=== PATIENT | male | born 1940 | race Caucasian/White ===

== ENCOUNTER 2023-02-05 07:55 | Inpatient (IN) | payer MEDICARE ==
[2023-02-05] MEDS ORDERED: DIPH,PERTUS(ACELL)TETVAC-LF 0.5 ML VIAL IM ONE (08:30)
--- NOTE | 2023-02-05 08:47 | ED ---
General Adult HPI <EttaEleonoraParvez - Last Filed: 02/05/23 10:21> - General Source: patient, RN notes reviewed, old records reviewed Mode of arrival: ambulatory Limitations: no limitations <Bhavik Moise - Last Filed: 02/05/23 10:42> - General Chief complaint: Fall Stated complaint: Fall Time Seen by Provider: 02/05/23 08:00 - History of Present Illness Initial comments: This is an 82-year-old male presents emergency department stating that he was doing some exercises to help with neuropathy when he bent over he tipped over and fell hit the back of his head and cut open. Patient states he did not have any chest pain difficulty breathing shortness of breath or palpitations. Patient told me he was not dizzy or lightheaded however he did tell the nurses she was dizzy when he fell but I am not sure if that was when he was falling to the ground because he denied it to me. Patient denied abdominal pain patient denies nausea vomiting. Patient denies any fever chills or cough per patient denies a headache currently. Patient denies any neck pain currently patient denies numbness weakness. (Bhavik Moise) - Related Data Allergies Allergy/AdvReac Type Severity Reaction Status Date / Time No Known Allergies Allergy Verified 02/05/23 08:03 Review of Systems ROS Other: All systems not noted in ROS Statement are negative. <Parvez Quiles - Last Filed: 02/05/23 10:21> ROS Other: All systems not noted in ROS Statement are negative. <Bhavik Moise - Last Filed: 02/05/23 10:42> ROS Statement: Those systems with pertinent positive or pertinent negative responses have been documented in the HPI. Past Medical History Past Medical History: Hyperlipidemia, Hypertension History of Any Multi-Drug Resistant Organisms: None Reported Additional Past Surgical History / Comment(s): open heart 2012 Past Psychological History: No Psychological Hx Reported Smoking Status: Never smoker Past Alcohol Use History: None Reported Past Drug Use History: None Reported <Bhavik Moise - Last Filed: 02/05/23 10:42> General Exam Limitations: no limitations <Bhavik Moise - Last Filed: 02/05/23 10:42> - General Exam Comments Initial Comments: GENERAL: Patient is well-developed and well-nourished. Patient is nontoxic and well- hydrated and is in mild distress. ENT: Neck is soft and supple. No significant lymphadenopathy is noted. Oropharynx is clear. Moist mucous membranes. Neck has full range of motion without eliciting any pain. EYES: The sclera were anicteric and conjunctiva were pink and moist. Extraocular movements were intact and pupils were equal round and reactive to light. Eyelids were unremarkable. PULMONARY: Unlabored respirations. Good breath sounds bilaterally. No audible rales rhonchi or wheezing was noted. CARDIOVASCULAR: There is a regular rate and rhythm without any murmurs gallops or rubs. ABDOMEN: Soft and nontender with normal bowel sounds. SKIN: Scalp laceration NEUROLOGIC: Patient is alert and oriented x3. Cranial nerves II through XII are grossly intact. Motor and sensory are also intact. Normal speech, volume and content. Symmetrical smile. MUSCULOSKELETAL: Normal extremities with adequate strength and full range of motion. No lower extremity swelling or edema. No calf tenderness. LYMPHATICS: No significant lymphadenopathy is noted PSYCHIATRIC: Normal psychiatric evaluation. (Bhavik Moise) Course Vital Signs 02/05/23 07:56 Temperature 98.0 F Pulse Rate 92 Respiratory 18 Rate Blood Pressure 152/89 O2 Sat by Pulse 96 Oximetry Procedures - Laceration Laceration #1 Indication: laceration Site: scalp Size (cm): 7 Description: irregular Depth: simple, single layer Sedation/Analgesia: none Pre-repair: wound explored, irrigated extensively, deep structures intact Type of Sutures: other (Dermal brady) Number of Sutures: 20 (Brady) Patient Tolerated Procedure: well, no complications <Parvez Quiles - Last Filed: 02/05/23 10:21> Medical Decision Making - Lab Data Result diagrams: 02/05/23 08:47 02/05/23 08:47 <Parvez Quiles - Last Filed: 02/05/23 10:21> - Lab Data Result diagrams: 02/05/23 08:47 02/05/23 08:47 <Bhavik Moise - Last Filed: 02/05/23 10:42> - Medical Decision Making EKG interpreted by myself shows atrial fibrillation with occasional PVC at 82 bpm QRS is 162 QT interval 408 QTC is 476 per patient's EKG shows a right bundle erlin block Was pt. sent in by a medical professional or institution (VITOR Simmons, HEALTH COORDINATOR, urgent care, hospital, or residential...) When possible be specific @ -No Did you speak to anyone other than the patient for history (EMS, parent, family, police, friend...)? What history was obtained from this source @ -No Did you review nursing and triage notes (agree or disagree)? Why? @ -I reviewed and agree with nursing and triage notes Were old charts reviewed (outside hosp., previous admission, EMS record, old EKG, old radiological studies, urgent care reports/EKG's, residential records)? Report findings @ -No old charts were reviewed Differential Diagnosis (chest pain, altered mental status, abdominal pain women, abdominal pain men, vaginal bleeding, weakness, fever, dyspnea, syncope, headache, dizziness, GI bleed, back pain, seizure, CVA, palpatations, mental health, musculoskeletal)? @ -Differential Dizziness: Benign paroxysmal positional Vertigo, Menieres disease, otitis media, acoustic neuroma, vertebrobasilar insufficiency, cerebellar stroke, encephalitis, hypovolemic, arrhythmia, coronary artery syndrome, anemia, this is not meant to be an all-inclusive list EKG interpreted by me (3pts min.). @ -As above X-rays interpreted by me (1pt min.). @ -None CT interpreted by me (1pt min.). @ -Brain CT showed no acute abnormality. CT C-spine shows no acute abnormality U/S interpreted by me (1pt. min.). @ -None done What testing was considered but not performed or refused? (CT, X-rays, U/S, labs)? Why? @ -None What meds were considered but not given or refused? Why? @ -None Did you discuss the management of the patient with other professionals (professionals i.e. VITOR Simmons, HEALTH COORDINATOR, lab, RT, psych nurse, social welfare administrator, rotary drum tanner, teacher, college service officer, rn field case manager)? Give summary @ -Spoke with Dr. Wells she agreed to admit the patient admitted the patient wrote admitting orders Was smoking cessation discussed for >3mins.? @ -No Was critical care preformed (if so, how long)? @ -No Were there social determinants of health that impacted care today? How? (Homelessness, low income, unemployed, alcoholism, drug addiction, transportation, low edu. Level, literacy, decrease access to med. care, long-term, rehab)? @ -No Was there de-escalation of care discussed even if they declined (Discuss DNR or withdrawal of care, Hospice)? DNR status @ -No What co-morbidities impacted this encounter? (DM, HTN, Smoking, COPD, CAD, Cancer, CVA, ARF, Chemo, Hep., AIDS, mental health diagnosis, sleep apnea, morbid obesity)? @ -None Was patient admitted / discharged? Hospital course, mention meds given and route, prescriptions, significant lab abnormalities, going to OR and other pertinent info. @ -Patient had a scalp LAC which was stapled up. Patient's sodium came back low he was given a bolus of normal saline and started on protocol 75 mL an hour. Patient also was given potassium for low potassium. I spoke with Dr. Wells she agreed to admit the patient admitted the patient wrote admitting orders Undiagnosed new problem with uncertain prognosis? @ -No Drug Therapy requiring intensive monitoring for toxicity (Heparin, Nitro, Insulin, Cardizem)? @ -No Were any procedures done? @ -No Diagnosis/symptom? @ -Hyponatremia Acute, or Chronic, or Acute on Chronic? @ -Acute Uncomplicated (without systemic symptoms) or Complicated (systemic symptoms)? @ -Complicated Side effects of treatment? @ -No Exacerbation, Progression, or Severe Exacerbation? @ -No Poses a threat to life or bodily function? How? (Chest pain, USA, VT, pneumonia, PE, COPD, DKA, ARF, appy, cholecystitis, CVA, Diverticulitis, Homicidal, Suic idal, threat to staff... and all critical care pts) @ -This is related to weakness fall and morbidity Diagnosis/symptom? @ -Hypokalemia Acute, or Chronic, or Acute on Chronic? @ -Acute Uncomplicated (without systemic symptoms) or Complicated (systemic symptoms)? @ -Complicated Side effects of treatment? @ -none Exacerbation, Progression, or Severe Exacerbation] @ -no Poses a threat to life or bodily function? @ -Yes this could lead to arrhythmias and potential (Bhavik Moise) - Lab Data Lab Results 02/05/23 02/05/23 Range/Units 08:47 08:47 WBC 10.4 (3.8-10.6) k/uL RBC 4.91 (4.30-5.90) m/uL Hgb 15.6 (13.0-17.5) gm/dL Hct 44.1 (39.0-53.0) % MCV 89.8 (80.0-100.0) fL MCH 31.9 (25.0-35.0) pg MCHC 35.5 (31.0-37.0) g/dL RDW 12.6 (11.5-15.5) % Plt Count 224 (150-450) k/uL MPV 8.1 Neutrophils % 85 % Lymphocytes % 4 % Monocytes % 10 % Eosinophils % 0 % Basophils % 0 % Neutrophils # 8.9 H (1.3-7.7) k/uL Lymphocytes # 0.4 L (1.0-4.8) k/uL Monocytes # 1.0 (0-1.0) k/uL Eosinophils # 0.0 (0-0.7) k/uL Basophils # 0.0 (0-0.2) k/uL Sodium 118 L* (137-145) mmol/L Potassium 2.7 L* (3.5-5.1) mmol/L Chloride 78 L (98-107) mmol/L Carbon Dioxide 29 (22-30) mmol/L Anion Gap 11 mmol/L BUN 37 H (9-20) mg/dL Creatinine 1.23 (0.66-1.25) mg/dL Est GFR (CKD-EPI)AfAm 64 (>60 ml/min/1.73 sqM) Est GFR (CKD-EPI)NonAf 55 (>60 ml/min/1.73 sqM) Glucose 124 H (74-99) mg/dL Calcium 8.2 L (8.4-10.2) mg/dL Total Bilirubin 1.9 H (0.2-1.3) mg/dL AST 64 H (17-59) U/L ALT 32 (4-49) U/L Alkaline Phosphatase 87 (38-126) U/L Total Protein 6.6 (6.3-8.2) g/dL Albumin 3.7 (3.5-5.0) g/dL Disposition <Parvez Quiles - Last Filed: 02/05/23 10:21> Time of Disposition: 10:42 <Bhavik Moise - Last Filed: 02/05/23 10:42> Clinical Impression: Fall, Hyponatremia, Hypokalemia, Scalp laceration Disposition: ADMITTED IP TO THIS HOSP Referrals: [facility],Clinic [Primary Care Provider] - 1-2 days
--- NOTE | 2023-02-05 09:11 | CT ---
EXAMINATION TYPE: CT brain jenn fritz DATE OF EXAM: 02/05/2023 COMPARISON: None HISTORY: Fall CT DLP: 1561.[address] of the brain was performed. The ventricles, basal cisterns and sulci overlying the cerebral convexities demonstrate mild enlargem ent. There is no evidence for intracranial hemorrhage or sulcal effacement. There is decreased attenuatio n about the periventricular white matter and deep white matter of both cerebral hemispheres, compatib le with chronic small vessel ischemia. No mass effects are seen. If symptoms persist consider MRI. Osseous calvarium is intact. IMPRESSION: 1. Age related atrophic and chronic small vessel ischemic change without acute intracranial process seen at this time. CT Cervical Spine: Unenhanced CT of the cervical spine was performed with bone and soft tissue window settings submitted . Coronal and sagittal reconstruction is obtained. There is normal alignment and prevertebral soft tissues. No evidence for acute cervical fracture . Scattered degenerative disc disease and spondylosis. Biapical scarring. IMPRESSION: 1. No evidence for acute fracture or subluxation of the cervical spine.
[2023-02-05 09:30] LABS: Basophils % (A) 0 %; Eosinophils % (A) 0 %; HCT 44.1 % (39.0-53.0); HGB 15.6 gm/dL (13.0-17.5); Lymphocytes # (A) 0.4 k/uL (1.0-4.8); Lymphocytes % (A) 4 %; MCH 31.9 pg (25.0-35.0); MCHC 35.5 g/dL (31.0-37.0); MCV 89.8 fL (80.0-100.0); Mean Platelet Volume 8.1; Monocytes % (A) 10 %; Neutrophils # (A) 8.9 k/uL (1.3-7.7); Neutrophils % (A) 85 %; Platelet Count 224 k/uL (150-450); RBC 4.91 m/uL (4.30-5.90); RDW 12.6 % (11.5-15.5); WBC 10.4 k/uL (3.8-10.6)
[2023-02-05 09:32] LABS: Albumin 3.7 g/dL (3.5-5.0); Calcium 8.2 mg/dL (8.4-10.2); Total Bilirubin 1.9 mg/dL (0.2-1.3); Total Protein 6.6 g/dL (6.3-8.2)
[2023-02-05 09:33] LABS: Potassium 2.7 mmol/L (3.5-5.1)
[2023-02-05] MEDS ORDERED: POTASSIUM CHLORIDE ER 20 MEQ TAB.ER PO STA ×2 (10:15→18:16)
[2023-02-05] MEDS ORDERED: POTASSIUM CHLORIDE 20 MEQ in WATER FOR INJECTION 1 100ML.BAG IVPB STA (10:15)
[2023-02-05] MEDS ORDERED: SODIUM CHLORIDE 0.9% 500 ML 500 ML IV ONE (10:15)
[2023-02-05] MEDS ORDERED: SODIUM CHLORIDE 0.9% 1,000 ML IV SCH (10:15)
--- NOTE | 2023-02-05 17:04 | P.HPIM ---
History of Present Illness H&P Date: 02/05/23 Chief Complaint: dizziness, fall 82 year old man with a history of hypertension, hyperlipidemia, paroxysmal atrial fibrillation presented for dizziness, fall. Patient says that he had been feeling dizzy since the medication changes are made absolutely 2 weeks ago especially when he stood up or ambulated. As a consequence, he has had poor by mouth intake in the last 3 days and did not eat anything and was remaining mostly in bed due to nausea associated with this dizziness. When he discontinued these medications, he felt better and was able to sustain an appetite. However, he continued to feel dizzy. Today, he had an episode in which he fell shortly after getting up and trying to watch the bathroom, hitting his head and having significant amount of bleeding. He proceeded to call his interior plant caretaker, who recommended he come to the emergency room for further eval uation. Patient denies fevers, chills, chest pain, palpitations, cough, dyspnea, abdominal pain, constipation, diarrhea, dysuria, dyschezia, numbness/weakness of extremities. In the emergency room, patient was afebrile, 152/89, heart rate 92, 96% on room air. CBC is unremarkable. Basic metabolic panel remarkable for hyponatremia to 118 and hypokalemia to 2.7, hypochloremia to 78, BUN was 37, creatinine is 1.23. Liver function tests show total bilirubin of 1.9, AST of 64, ALT of 32. Alcohol level is less than 10. EKG demonstrated atrial fibrillation with frequent PVCs. Head/cervical spine CT did not show any evidence of acute fracture or subluxation of the cervical spine, age-related atrophic and chronic small vessel ischemic changes without acute intracranial processes. Case was d iscussed with the emergency room provider and decision was made to admit the patient for further management of hyponatremia. All Systems reviewed and pertinent positives and negatives noted in HPI, all other symptoms are negative Gen: in no apparent distress, resting comfortably in bed Eyes: PERRL, no scleral injection or icterus HENT: normocephalic, small laceration in the occipital region, stapled, good hearing acuity, moist mucous membranes Neck: no tracheal deviation, full range of motion Resp: good air exchange, breathing comfortably with no accessory muscle use, no tactile fremitus CVS: good distal perfusion x 4, no pitting edema GI: soft, NTTP, ND, no hepatosplenomegaly : no suprapubic tenderness, no CVAT, zelaya catheter not present MSK: no clubbing, no cyanosis, no noted contractures of extremities Skin: no noted rashes, petechiae; temperature of skin is appropriate Neuro: moving all extremities without signs of weakness, CN II-XII intact Psych: cooperative, euthymic mood, insight and judgment intact Labs and imaging as above Assessment: Hypovolemic hyponatremia Hypokalemia Hypochloremia Paroxysmal atrial fibrillation Hypertension Hyperlipidemia Plan: Vital signs reviewed and noted in the HPI Lab work reviewed and noted in the HPI EKG is personally interpreted and noted in the HPI Case was discussed with the Emergency Room provider and decision was made to adm it the patient for hyponatremia Order chest x-ray, UA, urine electrolytes Pending serum osmolality, urine osmolality, TSH Nephrology consult was placed Order orthostatics twice a day Continue normal saline at 75 mL per hour Discontinued home hydrochlorothiazide Continue home metoprolol 50 mg daily Continue atorvastatin 20 mg at bedtime Continue losartan 100 mg daily Patient is full code Past Medical History Past Medical History: Hyperlipidemia, Hypertension History of Any Multi-Drug Resistant Organisms: None Reported Additional Past Surgical History / Comment(s): open heart 2011 Past Psychological History: No Psychological Hx Reported Smoking Status: Never smoker Past Alcohol Use History: None Reported Past Drug Use History: None Reported Medications and Allergies Home Medications Medication Instructions Recorded Confirmed Type Latanoprost [Latanoprost 0.005%] 1 drop BOTH EYES HS 02/05/23 02/05/23 History Losartan Potassium [Cozaar] 100 mg PO DAILY 02/05/23 02/05/23 History Metoprolol Succinate (ER) [Toprol 50 mg PO DAILY 02/05/23 02/05/23 History Xl] Simvastatin [Zocor] 40 mg PO HS 02/05/23 02/05/23 History hydroCHLOROthiazide [Hydrodiuril] 25 mg PO DAILY 02/05/23 02/05/23 History Allergies Allergy/AdvReac Type Severity Reaction Status Date / Time No Known Allergies Allergy Verified 02/05/23 08:03 Physical Exam Osteopathic Statement: *. No significant issues noted on an osteopathic structural exam other than those noted in the History and Physical/Consult. Vitals: Vital Signs Temp Pulse Resp BP Pulse Ox 02/05/23 07:56 98.0 F 92 18 152/89 96 Intake and Output 02/05/23 02/05/23 02/05/23 06:59 14:59 22:59 Other: Weight 77.564 kg Results CBC & Chem 7: 02/05/23 08:47 02/05/23 08:47 Labs: Abnormal Lab Results - Last 24 Hours (Table) 02/05/23 02/05/23 Range/Units 08:47 08:47 Neutrophils # 8.9 H (1.3-7.7) k/uL Lymphocytes # 0.4 L (1.0-4.8) k/uL Sodium 118 L* (137-145) mmol/L Potassium 2.7 L* (3.5-5.1) mmol/L Chloride 78 L (98-107) mmol/L BUN 37 H (9-20) mg/dL Glucose 124 H (74-99) mg/dL Calcium 8.2 L (8.4-10.2) mg/dL Total Bilirubin 1.9 H (0.2-1.3) mg/dL AST 64 H (17-59) U/L
[2023-02-05 17:19] LABS: African American GFR (CKD) 69 (>60 ml/min/1.73 sqM); Anion Gap 6 mmol/L; Blood Urea Nitrogen 33 mg/dL (9-20); Calcium 7.4 mg/dL (8.4-10.2); Carbon Dioxide 30 mmol/L (22-30); Chloride 85 mmol/L (98-107); Glucose 138 mg/dL (74-99); Non-African American GFR(CKD) 60 (>60 ml/min/1.73 sqM); Potassium 2.9 mmol/L (3.5-5.1); Sodium 121 mmol/L (137-145)
--- NOTE | 2023-02-05 20:12 | XR ---
EXAMINATION TYPE: XR chest 2V DATE OF EXAM: 02/05/2023 COMPARISON: 04/02/2011 INDICATION: Syncope TECHNIQUE: Frontal and lateral views of the chest are obtained. FINDINGS: The heart size is normal. The pulmonary vasculature is normal. The lungs are clear. IMPRESSION: 1. No acute pulmonary process.
[2023-02-05] MEDS: ATORVASTATIN 20 MG TAB PO SCH (20:56)
[2023-02-05 22:15] LABS: African American GFR (CKD) 82 (>60 ml/min/1.73 sqM); Anion Gap 7 mmol/L; Blood Urea Nitrogen 29 mg/dL (9-20); Calcium 7.9 mg/dL (8.4-10.2); Carbon Dioxide 30 mmol/L (22-30); Chloride 86 mmol/L (98-107); Glucose 94 mg/dL (74-99); Non-African American GFR(CKD) 71 (>60 ml/min/1.73 sqM); Potassium 3.3 mmol/L (3.5-5.1); Sodium 123 mmol/L (137-145)
[2023-02-05] MEDS ORDERED: Potassium Replacement Protocol 1 EACH MISC MISCELLANE PRN ×2 (22:48→22:49)
[2023-02-05] MEDS: POTASSIUM CHLORIDE ER 20 MEQ TAB.ER PO SCH (23:59)
[2023-02-06] MEDS: LATANOPROST 0.005% OPHTH DROPS 2.5 ML BTL BOTH EYES SCH ×2 (00:39→23:57)
[2023-02-06] MEDS: POTASSIUM CHLORIDE ER 20 MEQ TAB.ER PO SCH (02:11)
[2023-02-06 07:49] LABS: African American GFR (CKD) >90 (>60 ml/min/1.73 sqM); Anion Gap 7 mmol/L; Blood Urea Nitrogen 20 mg/dL (9-20); Calcium 7.8 mg/dL (8.4-10.2); Carbon Dioxide 27 mmol/L (22-30); Chloride 94 mmol/L (98-107); Glucose 86 mg/dL (74-99); Non-African American GFR(CKD) 86 (>60 ml/min/1.73 sqM); Potassium 3.6 mmol/L (3.5-5.1); Sodium 128 mmol/L (137-145)
[2023-02-06] MEDS: LOSARTAN 50 MG TAB PO SCH (08:06)
[2023-02-06] MEDS: METOPROLOL SUCCINATE (ER) 50 MG TAB.ER.24H PO SCH (08:06)
[2023-02-06 08:23] LABS: Appearance,Urine Clear (Clear); Bilirubin,Urine Negative (Negative); Blood,Urine Trace (Negative); Color,Urine Light Yellow; Glucose,Urine (UA) Negative (Negative); Ketones,Urine Trace (Negative); Leukocyte Esterase,Urine Negative (Negative); Nitrite,Urine Negative (Negative); PH, Urine 5.5 (5.0-8.0); Protein,Urine Negative (Negative); RBC,Urine <1 /hpf (0-5); Specific Gravity,Urine 1.005 (1.001-1.035); Urobilinogen,Urine <2.0 mg/dL (<2.0)
--- NOTE | 2023-02-06 10:13 | P.PN ---
Subjective Progress Note Date: 02/06/23 Patient is doing well today, has no new complaints. Feels overall better. Has a good appetite. No longer feels dizzy. Gen: awake, alert HEENT: normocephalic, good hearing acuity, moist mucous membranes Resp: good air exchange, breathing comfortably with no accessory muscle use CVS: good distal perfusion x 4, GI: soft, NTTP, ND : no SPT, no CVAT, zelaya catheter not present MSK: no pitting edema, no clubbing Neuro: non-focal, moving all extremities Psych: cooperative, euthymic mood Hospital course: 82 year old man with a history of hypertension, hyperlipidemia, paroxysmal atrial fibrillation presented for dizziness, fall. In the emergency room, patient was afebrile, 152/89, heart rate 92, 96% on room air. CBC is unremarkable. Basic metabolic panel remarkable for hyponatremia to 118 and hypokalemia to 2.7, hypochloremia to 78, BUN was 37, creatinine is 1.23. Liver function tests show total bilirubin of 1.9, AST of 64, ALT of 32. Alcohol level is less than 10. EKG demonstrated atrial fibrillation with frequent PVCs. Head/cervical spine CT did not show any evidence of acute fracture or subluxation of the cervical spine, age-related atrophic and chronic small vessel ischemic changes without acute intracranial processes. Case was discussed with the emergency room provider and decision was made to admit the patient for further management of hyponatremia. Assessment: Hypovolemic hyponatremia Hypokalemia Hypochloremia Paroxysmal atrial fibrillation Hypertension Hyperlipidemia Plan: Today, patient is afebrile, 133/91, heart rate 84, 96% on room air Basic metabolic panel shows improvement of sodium to 128, chloride is now 94 Urine sodium was less than 20 UA shows trace ketones, trace blood Serum osmolality was 264, urine osmolality was 502 TSH was 0.64 Chest x-ray was personally interpreted, clear parenchyma bilaterally, no signs of overt heart failure, no suspicious masses or nodules Nephrology consult is pending Order orthostatics twice a day Discontinued home hydrochlorothiazide Continue home metoprolol 50 mg daily Continue atorvastatin 20 mg at bedtime Continue losartan 100 mg daily Patient is full code Objective - Vital Signs Vital signs: Vital Signs Temp 98.9 F 02/06/23 07:15 Pulse 84 02/06/23 07:15 Resp 18 02/06/23 07:15 BP 133/91 02/06/23 07:15 Pulse Ox 96 02/06/23 07:15 FiO2 Intake & Output 02/05/23 02/06/23 02/06/23 18:59 06:59 18:59 Intake Total 118 Output Total 800 Balance -800 118 Weight 77.564 kg Intake: Oral 118 Output: Urine 800 - Labs CBC & Chem 7: 02/05/23 08:47 02/06/23 06:53 Labs: Abnormal Lab Results - Last 24 Hours (Table) 02/05/23 02/05/23 02/05/23 Range/Units 16:35 18:02 21:22 Sodium 121 L 123 L (137-145) mmol/L Potassium 2.9 L 3.3 L (3.5-5.1) mmol/L Chloride 85 L 86 L (98-107) mmol/L BUN 33 H 29 H (9-20) mg/dL Glucose 138 H (74-99) mg/dL Osmolality 264 L (280-301) mosm/kg Calcium 7.4 L 7.9 L (8.4-10.2) mg/dL Urine Ketones (Negative) Urine Blood (Negative) Ur Random Sodium <20 L (40-220) mmol/L 02/06/23 02/06/23 Range/Units 06:53 08:00 Sodium 128 L (137-145) mmol/L Potassium (3.5-5.1) mmol/L Chloride 94 L (98-107) mmol/L BUN (9-20) mg/dL Glucose (74-99) mg/dL Osmolality (280-301) mosm/kg Calcium 7.8 L (8.4-10.2) mg/dL Urine Ketones Trace H (Negative) Urine Blood Trace H (Negative) Ur Random Sodium (40-220) mmol/L
[2023-02-06] MEDS ORDERED: DEXTROSE 5% IN WATER 1,000 ML IV ONE (10:46)
--- NOTE | 2023-02-06 10:49 | P.NPCON ---
History of Present Illness - Reason for Consult hyponatremia - History of Present Illness Reason for consultation: Hyponatremia History of present illness: Patient is a 82-year-old male seen in renal consultation for hyponatremia. Patient came to the hospital due to generalized weakness and falls. Patient states he felt weak and lightheaded and fell twice and hit his head. Patient's sodium was 118 on admission. He did receive 1 L bolus of normal saline and was then receiving normal saline at 75 mL an hour. Last night around 11 PM sodium level was up to 123 and IV fluids were discontinued. Sodium level this morning is 128. Oral intake is good. Patient states he was on thiazide diuretic and was also started on 2 medications by cardiology after which he started feeling unwell. He denies any personal history of malignancy. Denies regular use of nonsteroidals. Patient states he didn't eat anything for about 3 days due to not feeling well. This morning he ate his breakfast. No chest pain or shortness of breath. Denies excessive fluid intake. Denies personal history of kidney disease. Vital signs are stable. General: No acute distress. HEENT: Head dressing noted. No drainage. LUNGS: No audible rhonchi or wheezes. HEART: Rate and Rhythm are regular. ABDOMEN: Soft, nontender. EXTREMITITES: No edema. Past Medical History Past Medical History: Hyperlipidemia, Hypertension History of Any Multi-Drug Resistant Organisms: None Reported Past Surgical History: Hernia Repair Additional Past Surgical History / Comment(s): open heart 2012 Past Psychological History: No Psychological Hx Reported Smoking Status: Never smoker Past Alcohol Use History: None Reported Past Drug Use History: None Reported Medications and Allergies Home Medications Medication Instructions Recorded Confirmed Type Latanoprost [Latanoprost 0.005%] 1 drop BOTH EYES HS 02/05/23 02/05/23 History Losartan Potassium [Cozaar] 100 mg PO DAILY 02/05/23 02/05/23 History Metoprolol Succinate (ER) [Toprol 50 mg PO DAILY 02/05/23 02/05/23 History Xl] Simvastatin [Zocor] 40 mg PO HS 02/05/23 02/05/23 History hydroCHLOROthiazide [Hydrodiuril] 25 mg PO DAILY 02/05/23 02/05/23 History Allergies Allergy/AdvReac Type Severity Reaction Status Date / Time No Known Allergies Allergy Verified 02/05/23 08:03 Physical Exam Vitals: Vital Signs Temp Pulse Pulse Resp BP BP Pulse Ox 02/06/23 07:15 98.9 F 84 18 133/91 96 02/06/23 03:19 98.7 F 87 16 132/81 92 L 02/05/23 19:54 98.7 F 74 16 146/93 98 02/05/23 19:39 18 02/05/23 18:00 98.4 F 74 18 107/63 99 Intake and Output 02/05/23 02/06/23 02/06/23 22:59 06:59 14:59 Intake Total 118 Output Total 800 Balance -800 118 Intake: Oral 118 Output: Urine 800 Other: Weight 77.564 kg Results - Lab Results Most recent lab results Calcium 7.8 mg/dL (8.4-10.2) L 02/06/23 06:53 Magnesium 2.0 mg/dL (1.6-2.3) 02/06/23 06:53 02/05/23 08:47 02/06/23 06:53 Assessment and Plan Plan: Assessment: 1. Hypovolemic hyponatremia further worsened with the use of thiazide diuretic and poor solute intake. Urine sodium less than 20 and urine osmolality 502. Improved with IV hydration. Sodium level 128 this morning. TSH normal. 2. Benign hypertension. Stable. 3. Weakness and falls. Possibly from hyponatremia. 4. Hypokalemia from poor intake and use of thiazide diuretic. Magnesium normal. Plan: Encouraged oral intake. Avoid thiazide diuretics. Add D5W at 100 mL an hour to slow correction of hyponatremia. Repeat sodium level in 3 hours. Thank you for the consultation. I will continue to follow the patient with you during his hospital stay.
[2023-02-06] MEDS: ATORVASTATIN 20 MG TAB PO SCH (20:13)
[2023-02-07 06:54] LABS: African American GFR (CKD) >90 (>60 ml/min/1.73 sqM); Anion Gap 5 mmol/L; Blood Urea Nitrogen 20 mg/dL (9-20); Carbon Dioxide 31 mmol/L (22-30); Chloride 93 mmol/L (98-107); Glucose 88 mg/dL (74-99); Magnesium 2.1 mg/dL (1.6-2.3); Non-African American GFR(CKD) 80 (>60 ml/min/1.73 sqM); Potassium 3.5 mmol/L (3.5-5.1); Sodium 129 mmol/L (137-145)
[2023-02-07] MEDS: LOSARTAN 50 MG TAB PO SCH (08:51)
[2023-02-07] MEDS: METOPROLOL SUCCINATE (ER) 50 MG TAB.ER.24H PO SCH (08:51)
[2023-02-07] MEDS ORDERED: POTASSIUM CHLORIDE ER 20 MEQ TAB.ER PO STA (12:09)
--- NOTE | 2023-02-07 12:09 | P.PN ---
Subjective Patient is seen in follow-up for hyponatremia. Sodium level up to 129 today. He did receive D5W for a few hours yesterday to slow the rapid correction of hyponatremia. Oral intake is good. No vomiting or diarrhea. Once to go home. Vital signs are stable. General: No acute distress. HEENT: Head exam is unremarkable. LUNGS: No audible rhonchi or wheezes. HEART: Rate and Rhythm are regular. ABDOMEN: Nontender. EXTREMITITES: No edema. Objective - Vital Signs Vital signs: Vital Signs Temp 98.3 F 02/07/23 07:05 Pulse 72 02/07/23 07:05 Resp 18 02/07/23 07:05 BP 135/88 02/07/23 07:05 Pulse Ox 98 02/07/23 07:05 FiO2 Intake & Output 02/06/23 02/07/23 02/07/23 18:59 06:59 18:59 Intake Total 236 Output Total 200 Balance 236 -200 Intake: Oral 236 Output: Urine 200 Other: # Voids 1 2 # Bowel Movements 2 - Labs CBC & Chem 7: 02/05/23 08:47 02/07/23 06:18 Labs: Abnormal Lab Results - Last 24 Hours (Table) 02/06/23 02/07/23 Range/Units 14:53 06:18 Sodium 126 L 129 L (137-145) mmol/L Chloride 93 L (98-107) mmol/L Carbon Dioxide 31 H (22-30) mmol/L Calcium 8.0 L (8.4-10.2) mg/dL Assessment and Plan Plan: Assessment: 1. Hypovolemic hyponatremia further worsened with the use of thiazide diuretic and poor solute intake. Urine sodium less than 20 and urine osmolality 502. Improved with IV hydration. Sodium level 129 this morning. TSH normal. 2. Benign hypertension. Stable. 3. Weakness and falls. Possibly from hyponatremia. 4. Hypokalemia from poor intake and use of thiazide diuretic. Magnesium normal. Plan: Encouraged oral intake. Avoid thiazide diuretics. Replace potassium. Repeat BMP and magnesium level 2-3 days postdischarge. Follow up outpatient in 1 week.
[2023-02-07 12:17] VITALS: BP 91/65; PULSE 66; RESP 17; TEMP 97.9
--- NOTE | 2023-02-07 16:36 | P.DS ---
Providers Date of admission: 02/05/23 10:53 Expected date of discharge: 02/07/23 Attending physician: Brenda Wells DO Consults: 02/05/23 13:54 Consult Physician Routine Consulting Provider: Terese Streeter Consult Reason/Comments: hyponatremia Do you want consulting provider notified?: Yes Primary care physician: [facility] Course: Assessment: Hypovolemic hyponatremia Hypokalemia Hypochloremia Paroxysmal atrial fibrillation Hypertension Hyperlipidemia Hospital Course: 82 year old man with a history of hypertension, hyperlipidemia, paroxysmal atrial fibrillation presented for dizziness, fall. In the emergency room, patient was afebrile, 152/89, heart rate 92, 96% on room air. CBC is unremarkable. Basic metabolic panel remarkable for hyponatremia to 118 and hypokalemia to 2.7, hypochloremia to 78, BUN was 37, creatinine is 1.23. Liver function tests show total bilirubin of 1.9, AST of 64, ALT of 32. Alcohol level is less than 10. EKG demonstrated atrial fibrillation with frequent PVCs. Head/cervical spine CT did not show any evidence of acute fracture or subluxation of the cervical spine, age-related atrophic and chronic small vessel ischemic changes without acute intracranial processes. Case was discussed with the emergency room provider and decision was made to admit the patient for further management of hyponatremia. Pt was found to have hypovolemic hyponatremia as evidenced from urine sodium, serum/urine osm. He was started on IVF and his Na improved to 129 by day of discharge. He was tolerating all of his meals. On discharge had HCTZ discontinued. He was instructed to f/u with Dr. Henley on discharge. Also instructed to obtain f/u labs early next week. I spent 34 minutes coordinating this discharge on 02/07 Gen: in no apparent distress, resting comfortably in bed Eyes: PERRL, no scleral injection or icterus HENT: normocephalic, small laceration in the occipital region, stapled, good hearing acuity, moist mucous membranes Neck: no tracheal deviation, full range of motion Resp: good air exchange, breathing comfortably with no accessory muscle use, no tactile fremitus CVS: good distal perfusion x 4, no pitting edema GI: soft, NTTP, ND, no hepatosplenomegaly : no suprapubic tenderness, no CVAT, zelaya catheter not present MSK: no clubbing, no cyanosis, no noted contractures of extremities Skin: no noted rashes, petechiae; temperature of skin is appropriate Neuro: moving all extremities without signs of weakness, CN II-XII intact Psych: cooperative, euthymic mood, insight and judgment intact Patient Condition at Discharge: Good Plan - Discharge Summary New Discharge Prescriptions: Continue Metoprolol Succinate (ER) [Toprol XL] 50 mg PO DAILY Losartan Potassium [Cozaar] 100 mg PO DAILY Simvastatin [Zocor] 40 mg PO HS Latanoprost [Latanoprost 0.005%] 1 drop BOTH EYES HS Discontinued hydroCHLOROthiazide [Hydrodiuril] 25 mg PO DAILY Discharge Medication List Latanoprost [Latanoprost 0.005%] 1 drop BOTH EYES HS 02/05/23 [History] Losartan Potassium [Cozaar] 100 mg PO DAILY 02/05/23 [History] Metoprolol Succinate (ER) [Toprol XL] 50 mg PO DAILY 02/05/23 [History] Simvastatin [Zocor] 40 mg PO HS 02/05/23 [History] Follow up Appointment(s)/Referral(s): Melanie Henley MD [STAFF PHYSICIAN] - 02/14/23 8:00 am [facility]inic [Primary Care Provider] - 1-2 days ([facility] office not available at time of discharge. Please follow-up with Primary Care Physician early next week. [facility] Ambulatory/Diagnostic Orders: Basic Metabolic Panel [LAB.AMB] Time Frame: 02/11/23, Location: None Selected Complete Blood Count w/diff [LAB.AMB] Time Frame: 02/11/23, Location: None Selected Patient Instructions/Handouts: Fall Prevention for Older Adults (ED), Acute Wound Care (DC), Staple Care (DC) Discharge Disposition: HOME SELF-CARE
== END 2023-02-07 14:02 | disposition home or self-care (01) | DRG 641 ==
LOC: EC 07:55 → 5NMEDONC 10:53
PROVIDERS: ADMIT Internal Medicine; ATTEND Internal Medicine
DX: E87.1 Hypo-osmolality and hyponatremia (principal); W19.XXXA Unspecified fall, initial encounter; E86.1 Hypovolemia; E87.6 Hypokalemia; E87.8 Other disorders of electrolyte and fluid balance, not elsewhere classified; E78.5 Hyperlipidemia, unspecified; T50.2X5A Adverse effect of carbonic-anhydrase inhibitors, benzothiadiazides and other diuretics, initial encounter; G62.9 Polyneuropathy, unspecified; I10 Essential (primary) hypertension; I48.0 Paroxysmal atrial fibrillation; I49.3 Ventricular premature depolarization; S01.01XA Laceration without foreign body of scalp, initial encounter; Z79.899 Other long term (current) drug therapy; Z91.81 History of falling
CPT/HCPCS: 36415; 70450; 71046; 72125; 80048; 80053; 80320; 81001; 83735; 83930; 83935; 84295; 84300; 84443; 85025; 90471; 90715; 93005; 96361; 96365; 96366; 99285

== ENCOUNTER 2024-06-25 05:39 | Day surgery (SDC) | payer OTHER ==
[~2024-06-25 05:39] MED LIST: SODIUM CHLORIDE 0.9% 1,000 ML IV SCH
[2024-06-25] MEDS ORDERED: LACTATED RINGERS 1,000 ML IV SCH (06:29)
[2024-06-25] MEDS: IV FLUID CONTINUATION 1,000 ML IV ONE (06:44)
[2024-06-25] MEDS ORDERED: HYDROmorphone 0.5 MG/0.5 ML SYRINGE IVP PRN (07:00)
[2024-06-25] MEDS: SODIUM CHLORIDE 0.9% 500 ML 500 ML IV ONE ×2 (07:00→08:22)
[2024-06-25 07:07] VITALS: TEMP 97.3
[2024-06-25] MEDS: SODIUM CHLORIDE 0.9% 500 ML DEHP FREE BAG IV STA (07:10)
[2024-06-25] MEDS ORDERED: LIDOCAINE 1% INJ 10MG/ML (20 ML MDV) ONE (07:25)
[2024-06-25] MEDS ORDERED: PROPOFOL 10 MG/ML 20 ML VIAL IV ONE (07:25)
[2024-06-25] MEDS: BENZOCAINE SPRAY 1 CAN TOPICAL ONE (07:33)
[2024-06-25 07:42] LABS: African American GFR (CKD) 70 (>60 ml/min/1.73 sqM); Anion Gap 11 mmol/L; Blood Urea Nitrogen 28 mg/dL (9-20); Calcium 9.3 mg/dL (8.4-10.2); Carbon Dioxide 25 mmol/L (22-30); Chloride 104 mmol/L (98-107); Glucose 90 mg/dL (74-99); Non-African American GFR(CKD) 61 (>60 ml/min/1.73 sqM); Sodium 140 mmol/L (137-145)
[2024-06-25 07:49] LABS: Potassium 4.3 mmol/L (3.5-5.1)
[2024-06-25 09:19] VITALS: BP 129/89; PULSE 75; RESP 16
--- NOTE | 2024-06-25 13:25 | P.TEE ---
Date of Procedure: 06/25/24 Description of Procedure(s): Procedure performed: 1. Transesophageal Echocardiogram with color flow doppler, pulsed wave doppler and continuous wave doppler, (CPT 32060, +27501, +[id number]) 2. Bubble Study Indications: Persistent atrial fibrillation, KYMBERLY prior to attempted cardioversion. Consent: I have discussed the risks, benefits and alternative therapies for the above-mentioned procedure. The patient has indicated understanding and acceptance of the risks of the procedure. Signed consent was obtained and was placed in the paper chart. Procedural Steps: Timeout was performed in usual fashion. Patient's heart rate, blood pressure, oxygen saturation and ECG were monitored. Benzocaine was sprayed liberally in the back of the throat. Sedation was provided by anesthesiology team. KYMBERLY probe was advanced without difficulty and without any immediate complications to the esophagus. KYMBERLY study was performed with color flow doppler, pulsed wave doppler and continuous wave doppler. The probe was then removed. Patient tolerated the procedure well. Patient was transferred to the post procedure area in stable and satisfactory condition. Throughout the procedure patient's heart rate, blood pressure, oxygen saturation and ECG were monitored. Complications: none FINDINGS Left Atrium: Severe left atrial dilatation. Spontaneous echogenic contrast noticed in left atrium. No evidence of mass or thrombus seen Left Atrial Appendage: There is any evidence of thrombus along with spontaneous echogenic contrast noticed in left atrial appendage. Slow flow noticed in left atrial appendage. Inter atrial septum: Intact inter-atrial septum with no evidence of atrial septal defect or patent foramen ovale. Left Ventricle: Normal global LV size and systolic function Right Atrium: Normal overall RA size Right Ventricle: Normal global RV size and systolic function Aortic Valve: Trileaflet aortic valve with mild leaflet thickening. Trace aortic regurgitation. No significant stenosis on color Doppler. Mitral Valve: Struturally normal. Mild mitral regurgitation, likely functional. Pulmonic Valve: Not well visualized. Tricuspid Valve: Moderate tricuspid regurgitation. Ascending aorta, Aortic root and Aortic arch: Normal size aortic root measured 3.8 cm. Ascending aorta measured 3.9 cm. Descending aorta: Mild intimal thickening. CONCLUSION: Severe biatrial dilatation Evidence of thrombus and spontaneous echogenic contrast noticed in left atrial appendage with slow flow. Normal global LV size systolic function Mild mitral regurgitation, moderate tricuspid regurgitation Cardioversion was not performed due to concern of left atrial appendage thrombus. Patient is recommended to continue systemic anticoagulation without any interruption. Rico Knutson, MD, RPVI, FACC Thank you for allowing [facility] to participate in this patient's care. Feel free to reach out in case of any followup questions.
== END 2024-06-25 10:08 | disposition home or self-care (01) ==
LOC: OR 05:39
PROVIDERS: ATTEND Student in an Organized Health Care Education/Training Program
CPT/HCPCS: 80048; 92960; 93312; 93320; 93325